=== PATIENT | male | born 1965 | race Caucasian/White ===

== ENCOUNTER 2017-11-07 13:14 | Emergency (ER) | payer SELFPAY ==
[2017-11-07] MEDS ORDERED: SODIUM CHLORIDE 0.9% 1000ML 1,000 ML IVS ONE (13:34)
[2017-11-07] MEDS ORDERED: ONDANSETRON INJ 4 MG/2 ML VIAL IV ONE (13:35)
--- NOTE | 2017-11-07 13:37 | ED.PDOC ---
History of Present Illness - General Chief Complaint: GI Problem Stated Complaint: N/V/D Time Seen by Provider: 11/07/17 13:32 Information Source: patient Exam Limitations: no limitations - History of Present Illness Initial Comments: THIS IS HIS THIRD DAY WITH NAUSEA, VOMITING AND DIARRHEA ASSOCIATED WITH ABDOMINAL PAIN. HE VOICES 8 EPISODES OF DIARRHEA IN THE PAST 24 HRS. HAS HAD SUBJECTIVE FEVER. Abdominal Pain Onset Location: epigastric Pain Radiation: no radiation Quality: moderate Timing/Duration: days - THREE DAYS Improving Factors: nothing Worsening Factors: nothing Associated Symptoms: diarrhea, fever/chills, nausea/vomiting Review of Systems - Review of Systems Constitutional: States: fever, weakness EENTM: States: no symptoms reported Respiratory: States: no symptoms reported Cardiology: States: no symptoms reported Gastrointestinal/Abdominal: States: abdominal pain, diarrhea, nausea, vomiting Genitourinary: States: no symptoms reported Musculoskeletal: States: no symptoms reported Skin: States: no symptoms reported Neurological: States: no symptoms reported Endocrine: States: no symptoms reported Hematologic/Lymphatic: States: no symptoms reported Past Medical History (General) - Vaccination History Hx Tetanus, Diphtheria Vaccination: Yes Hx Influenza Vaccination: No - Social History Hx Tobacco Use: Yes Hx Alcohol Use: No - Female History Patient : No Family Medical History - Family History Mother Living Status: Hx Family Cancer: Yes - lung with mets Father Living Status: Still Living Hx Family Diabetes: Yes Physical Exam - Physical Exam General Appearance: Alert, Anxious, Well Developed, Well Groomed Eyes, Ears, Nose, Throat Exam: PERRL/EOMI, normal ENT inspection, TMs normal, pharynx normal Neck: non-tender, full range of motion, supple, normal inspection Respiratory: chest non-tender, lungs clear, normal breath sounds, no respiratory distress, no accessory muscle use Cardiovascular/Chest: normal peripheral pulses, regular rate, rhythm, no edema, no gallop, no JVD, no murmur Gastrointestinal/Abdominal: normal bowel sounds, non tender, soft, no organomegaly, no pulsatile mass Male Genitalia: no hernia Rectal Exam: deferred Back Exam: normal inspection Neurologic: no motor/sensory deficits, alert, normal mood/affect, oriented x 3 Skin Exam: normal color, warm/dry Lymphatic: no adenopathy Progress - Results/Orders Results/Orders: LABORATORY IS REPORTED AND IS WNL. THE PATIENT WAS GIVEN IV FLUIDS AND I WAITED APPROX 5 HOURS FOR A STOOL SPECIMEN BUT THE PATIENT WAS UNABLE TO GIVE ME ONE. HE WILL BE DISCHARGED. Departure - Departure Clinical Impression: Gastroenteritis Time of Disposition: 17:25 Disposition: Discharge to Home or Self Care Condition: Good Departure Forms: ED Discharge - Pt. Copy, Patient Portal Self Enrollment Instructions: Viral Gastroenteritis Diet: resume usual diet Activity: increase activity as tolerated Prescriptions: Diphenoxylate/Atropine [Lomotil Tab] 1 tab PO Q8HRS #6 tab Ondansetron HCl [Zofran] 4 mg PO Q8HRS #6 ml Home Medications: Ambulatory Orders HYDROcodone 7.5MG/APAP 325MG [[place] 7.5/325] 1 tab PO .Q4H PRN #15 tab 05/28/14 Ibuprofen [Motrin] 600 mg PO TID #15 tab 05/28/14 Amitriptyline HCl 10/22/14 Etodolac 10/22/14 tiZANidine [Zanaflex] 4 mg PO BID 10/22/14 Diphenoxylate/Atropine [Lomotil Tab] 1 tab PO Q8HRS #6 tab 11/07/17 Ondansetron HCl [Zofran] 4 mg PO Q8HRS #6 ml 11/07/17
[2017-11-07 13:39] VITALS: TEMP 97.4
[2017-11-07] MEDS ORDERED: DICYCLOMINE HCL INJ 20 MG/2 ML AMP IM ONE (14:42)
[2017-11-07 14:43] VITALS: O2SAT 97
[2017-11-07 19:23] VITALS: BP 135/79
== END 2017-11-07 17:55 | disposition home or self-care (01) ==
LOC: ER 13:14
DX: K52.9 Noninfective gastroenteritis and colitis, unspecified (principal); Z87.891 Personal history of nicotine dependence
CPT/HCPCS: 36415; 80053; 81001; 85025; J0500; J2405; J7030

== ENCOUNTER 2020-01-02 11:57 | Emergency (ER) | payer SELFPAY ==
[2020-01-02] MEDS ORDERED: TETANUS-DIPHTHERIA TOXOIDS (TD 1 EA SYG IM ONE (12:07)
[2020-01-02] MEDS ORDERED: LIDOCAINE 1% 10 ML VIAL INJ ONE ×2 (12:09→13:14)
[2020-01-02] MEDS ORDERED: TETANUS,DIPHTHERIA,PERTUSSIS 1 EA SYG IM ONE (12:25)
--- NOTE | 2020-01-02 12:36 | RAD ---
EXAM DESCRIPTION: Hand,Right 2 Views CLINICAL HISTORY: right small finger trauma COMPARISON: None Available. TECHNIQUE: AP and lateral FINDINGS: The visualized bones appear well mineralized. No acute fracture or dislocation. The soft tissues appear grossly unremarkable. IMPRESSION: No acute radiographic abnormality is noted in the right hand. Electronically signed by: Katia Agustin MD 01/02/2020 12:35 PM CDT
[2020-01-02 12:52] VITALS: TEMP 96.7
--- NOTE | 2020-01-02 12:53 | ED.PDOC ---
History of Present Illness - General Chief Complaint: Upper Extremity Injury Time Seen by Provider: 01/02/20 12:07 Additional Information: Patient is a 54-year-old male who presents to the ED with chief complaints of right small finger injury. Patient was working in a shop screwing a valve and the screwdriver slipped off the screw and penetrated patient's small finger. Patient denies any other injury. Patient indicates he has full range of motion and sensation of his hand. Patient indicates his last tetanus shot was greater than 10 years ago. He indicates his pain is 5 out of 10. The injury occurred just prior to arrival. - History of Present Illness Allergies/Adverse Reactions: Allergies Penicillins Allergy (Verified 01/02/20 12:44) Home Medications: Ambulatory Orders HYDROcodone 7.5MG/APAP 325MG [[place] 7.5/325] 1 tab PO .Q4H PRN #15 tab 05/28/14 Ibuprofen [Motrin] 600 mg PO TID #15 tab 05/28/14 Amitriptyline HCl 10/22/14 Etodolac 10/22/14 tiZANidine [Zanaflex] 4 mg PO BID 10/22/14 Diphenoxylate/Atropine [Lomotil Tab] 1 tab PO Q8HRS #6 tab 11/07/17 Ondansetron HCl [Zofran] 4 mg PO Q8HRS #6 ml 11/07/17 Ibuprofen [Motrin] 600 mg PO Q6H PRN #20 tab 01/02/20 Review of Systems - Review of Systems Constitutional: States: no symptoms reported EENTM: States: no symptoms reported Respiratory: States: no symptoms reported. Denies: cough, short of breath Cardiology: States: no symptoms reported. Denies: chest pain, palpitations Gastrointestinal/Abdominal: Denies: abdominal pain, nausea, vomiting Genitourinary: States: no symptoms reported Musculoskeletal: States: no symptoms reported All other Systems: Reviewed and Negative Past Medical History (General) - Patient Medical History Hx Stroke: No Hx Dementia: No Hx Asthma: No Hx Pacemaker: No Hx Hypertension: No Hx Thyroid Disease: No Hx Diabetes: No - Vaccination History Hx Tetanus, Diphtheria Vaccination: Yes Hx Influenza Vaccination: No - Social History Hx Tobacco Use: Yes Hx Alcohol Use: No - Female History Patient : No Family Medical History - Family History Mother Living Status: Hx Family Cancer: Yes - lung with mets Father Living Status: Still Living Hx Family Diabetes: Yes Physical Exam - Physical Exam General Appearance: Alert, Comfortable, No apparent distress, Well Developed, Well Nourished Wrist Exam: normal inspection, non-tender, no evidence of injury, normal ROM Hand Exam: normal ROM Skin Exam: normal color, warm/dry Comments: Right small finger with 5x5 mm circular skin defect medial aspect of finger at the mid proximal phalange. No active bleeding, full range of motion finger, normal sensation to light touch radial and ulnar aspect of finger. The defect is full-thickness. Wound is clear, no obvious FB. Progress - Progress Progress: 01/02/20 13:36 Finger with puncture wound with no fracture seen on x-ray. There is a punctate superficial foreign body noted on x-ray and finger was irrigated copiously with normal saline and this should be sufficient to address the foreign body. Finger sutured and patient instructed to return to the ED or see his PCP in 7 days for suture removal. Patient encouraged to keep the wound clean to minimize risk of infection. Vital signs stable, patient is NAD and looks clinically well and I believe is safe for discharge with outpatient follow-up. Follow-up instructions, discharge instructions and return to ED precautions discussed with patient. Patient voices understanding and willingness to comply with instructions. All radiographic results have been discussed with the patient, and all questions answered. Patient is happy with plan. Procedures - Laceration/Wound Repair Right Finger Wound's Depth, Shape: irregular Wound Explored: clean Irrigated w/ Saline (cc's): 50 Betadine Prep?: Yes Anesthesia: 1% Lidocaine Volume Anesthetic (cc's): 5 Wound Repaired With: sutures Suture Size/Type: 4:0, prolene Number of Sutures: 2 Layer Closure?: No Sterile Dressing Applied?: Yes Departure - Departure Clinical Impression: Laceration of finger, right Qualifiers: Encounter type: initial encounter Finger: little finger Damage to nail status: without damage Foreign body presence: with foreign body Qualified Code(s): S61.226A - Laceration with foreign body of right little finger without damage to nail, initial encounter Condition: Good Departure Forms: ED Discharge - Pt. Copy, Patient Portal Self Enrollment Instructions: DI for Arm Pain, Finger Fracture, Laceration Repair, Wound Care (DC) Referrals: ELOISE BRINK MD [Active Staff] - 1 Week (for suture removal) Prescriptions: Ibuprofen [Motrin] 600 mg PO Q6H PRN #20 tab PRN Reason: Pain Home Medications: Ambulatory Orders HYDROcodone 7.5MG/APAP 325MG [[place] 7.5/325] 1 tab PO .Q4H PRN #15 tab 05/28/14 Ibuprofen [Motrin] 600 mg PO TID #15 tab 05/28/14 Amitriptyline HCl 10/22/14 Etodolac 10/22/14 tiZANidine [Zanaflex] 4 mg PO BID 10/22/14 Diphenoxylate/Atropine [Lomotil Tab] 1 tab PO Q8HRS #6 tab 11/07/17 Ondansetron HCl [Zofran] 4 mg PO Q8HRS #6 ml 11/07/17 Ibuprofen [Motrin] 600 mg PO Q6H PRN #20 tab 01/02/20
[2020-01-02] MEDS ORDERED: IBUPROFEN 200 MG TAB PO ONE (13:02)
--- NOTE | 2020-01-02 13:14 | RAD ---
EXAM DESCRIPTION: Fingers,Right CLINICAL HISTORY: 54 years Male, TRAUMA TO PROXIMAL PHALANX OF FIFTH DIGIT COMPARISON: Hip radiographs in the. TECHNIQUE: Three views of the right fifth digit were obtained. FINDINGS/IMPRESSION: Images of the right small finger demonstrate no acute displaced fracture or dislocation. The joint spacing and alignment is normal. Mild osteoarthritic changes with joint space narrowing, subchondral sclerosis and marginal osteophyte formation affects the IP and MCP joints. Small soft tissue density overlies the proximal aspect of the small finger which may represent surface debris or soft tissue calcifications, for clinical correlation. Electronically signed by: Micah Graham DO 01/02/2020 1:12 PM CDT
[2020-01-02 13:35] VITALS: BP 127/82; O2SAT 98
[2020-01-03] MEDS ORDERED: NEOMYCIN-BACITRACIN-POLYMYXIN 0.9 GM UD TOP SCH (09:00)
== END 2020-01-02 13:35 | disposition home or self-care (01) ==
LOC: ER 11:57
DX: S61.226A Laceration with foreign body of right little finger without damage to nail, initial encounter (principal); W27.8XXA Contact with other nonpowered hand tool, initial encounter; Z87.891 Personal history of nicotine dependence; Z88.0 Allergy status to penicillin; Y99.0 Civilian activity done for income or pay; Y92.69 Other specified industrial and construction area as the place of occurrence of the external cause